=== PATIENT | male | born 1990 | race Caucasian/White ===

== ENCOUNTER 2016-05-13 19:33 | Emergency (ER) | payer OTHER ==
[~2016-05-13] VITALS: Ht 185.4 cm; Wt 110.0 kg
[~2016-05-13 19:33] MED LIST: DEXT10TA8 PO; DIPH1TAB PO
[2016-05-13 19:47] VITALS: BP 146/79; PULSE 96; RESP 20
--- NOTE | 2016-05-13 21:21 | ED.REPORT ---
HPI-Back Pain Under 40 Date of Service May 13, 2016 ED Provider: Mark Rob MD A 25 year old male with a history of L4 L5 disc herniation and anabolic steroid use presents to the ED complaining of lower back pain. The pt was working out strenuously two days ago with a focus on his back. He experienced lower back pain the next day but thought little of it and continued to work out normally. While doing leg raises last night, be "heard and felt" a pop in his right gluteus deidre. This was followed by severe lower back pain and numbness in his lower right gluteus muscle, toes, right calf, and right testicle. The pt denies nausea. He took ibuprofen and Tylenol today, the last doses of which were 12:00 and 15:00 respectively. The pt suspects that his pain is due to a reherniation of L4 and L5. His last herniation was in 05/2013, and he had a microdiscectomy in 09/2013. The pt has an appointment scheduled on 05/22/2016 to address back pain that he was experiencing prior to this episode. Nursing Notes Stated Complaint: LOWER BACK PAIN AND NUMBNESS Chief Complaint: Back Pain or Injury Nursing Notes Reviewed: Yes Allergies: Coded Allergies: No Known Allergies (Verified Allergy, Unknown, 03/13/16) Scheduled Dextroamphetamine/Amphetamine (Adderall) 10 Mg Tablet 10 MG PO BID Prednisone (PredniSONE) 20 Mg Tablet 20 MG PO TID Scheduled PRN Diphenoxylate/Atropine 2.5-0.025 mg (Lomotil 2.5-0.025 mg) 1 Each Tablet 2 TABLET PO QID PRN PRN For Diarrhea or Loose Stool General Time Seen by MD: 21:19 Chief Complaint Other (Lower back pain) Hx Obtained From: Patient Arrived By: Walk-in Sudden in Onset?: Yes Onset Occurred: 1 day ago Symptom Duration: Since onset Recent Healthcare: No recent hospitalization, Recent doctor visit Similar Sx Previous: Yes Past Medical History Past Medical History Sciatica Herniated lumbar intervertebral disk 05/2016 ADD/ADHD Past Surgical History microdiscectomy 09/2013 Smoking History Never Smoker Social History anabolic steroid use Alcohol Use: Denies alcohol use Drug Use: Denies drug use Ambulatory Status Independent Review of Systems Constitutional: Denies: Chills, Fever Respiratory: Denies: Non-productive cough, Shortness of breath Cardiovascular: Denies: Chest pain GI: Denies: Abdominal pain, Nausea, Vomiting Musculoskeletal: Reports: Back pain, Denies: Neck pain Complete sys rev & neg: except as marked. Physical Exam Initial Vital Signs Vital Signs (First) Date Time Temp Pulse Resp B/P Pulse Ox O2 Delivery O2 Flow Rate FiO2 05/13/16 19:47 37.2 96 20 146/79 Room Air 05/13/16 23:42 96 Initial VS: Reviewed, Vital signs normal General/Constitutional: Awake, Alert Back: Atraumatic very tender in right sciatic notch Neurologic: Oriented X3, Speech NL, No motor deficits, No sensory deficits Neck: Atraumatic, Supple, Full range of motion Respiratory / Chest: Atraumatic, Breath sounds NL, Breath sounds = bilat, No respiratory distress Cardiovascular: Heart rate NL, Regular rhythm, Heart sounds NL Abdomen: Atraumatic, Soft, Non-tender 1+ patellar reflexes will not tolerate movement of right leg Head / Eyes: Atraumatic, Normocephalic, PERRL, EOMI ENT: Atraumatic, Airway patent, Mucous membranes moist Upper Extremity / MS: Atraumatic, Full range of motion Skin: Atraumatic, Color NL, No rash, Warm, Dry Psychiatric: Affect NL, Mood NL Re-Eval/Medical Decision Med Decision/Clinical Course 25-year-old male with sudden onset of right sciatica, very similar to previous symptoms with an L5-S1 disc herniation. He has had some progressive neurologic deficit. He has no evidence of cauda equina syndrome and no indication for immediate imaging. He will be treated with pain medication and oral steroids. He will follow up as scheduled with his orthopedist for further evaluation and treatment. Source of Hx: Old records Re-Evaluation/Progress : Time of Eval: 23:19 Patient Status: Condition improved Re-Evaluation/Progress Note: Pt rechecked, whose pain has markedly improved. Diagnosis and the plan for discharge are discussed. The pt understands and agrees with the plan. All questions are addressed at this time. Counseled Regarding: Diagnosis, Need for follow-up, When/why to return to ED Discharge & Departure Impression: Primary Impression: Sciatica, right side Additional Impression: Herniated lumbar intervertebral disc Disposition: Home All VS Reviewed: Yes Patient Instructions: Sciatica (ED) Additional Instructions: Prednisone 20 mg by mouth 3 times a day for 5 days, #15 prescription written. Oxycodone/acetaminophen 5/325, one or 2 every 4-6 hours as needed for severe pain, #10 prepack dispensed. Avoid activity that hurts it. No work until it is markedly improved and you are not requiring pain medications. Talk to your regular doctor as planned about MRI and epidural steroid injection. Referrals: [facility] Scribe Attestation Portions of this note were transcribed by Zachariah Escoto. I, Dr. Rob personally performed the history, physical exam and medical decision-making; I reviewed and confirmed the accuracy of the information in the transcribed note. Signed by: Radha Nolan, 05/13/2016 and 23:40. copies to: [facility] Mark Rob MD May 13, 2016 21:21 ZACHARIAH ESCOTO May 13, 2016 22:08
[2016-05-13] MEDS ORDERED: predniSONE 20 mg Tablet PO ONE (21:30)
[2016-05-13] MEDS ORDERED: Ketorolac 30 mg/mL 2 mL Inj IM ONE (21:30)
[2016-05-13] MEDS ORDERED: HYDROmorphone 1 mg/mL Inj IM ONE (21:30)
[2016-05-13] MEDS ORDERED: _oxyCODONE/APAP 5-325 mg Tablet PO PRN (23:30)
[2016-05-13] MEDS ORDERED: PRE20 PO (23:33)
[2016-05-13 23:42] VITALS: PULSE 85; RESP 20; O2SAT 96
== END 2016-05-13 23:47 | disposition home or self-care (01) ==
LOC: SED 19:33
DX: M54.31 Sciatica, right side (principal); M51.26 Other intervertebral disc displacement, lumbar region; X50.3XXA Overexertion from repetitive movements, initial encounter; Y93.B9 Activity, other involving muscle strengthening exercises; Y92.9 Unspecified place or not applicable; Y99.8 Other external cause status
CPT/HCPCS: 96372; 99284; J1170; J1885

== ENCOUNTER 2016-05-18 18:52 | Emergency (ER) | payer OTHER ==
[~2016-05-18] VITALS: Ht 185.4 cm; Wt 111.4 kg
[~2016-05-18 18:52] MED LIST changes: +PRE20 PO
[2016-05-18 18:59] VITALS: BP 130/77; PULSE 105; RESP 16; O2SAT 96
== END 2016-05-18 19:25 | disposition left against medical advice (07) ==
LOC: SED 18:52
DX: R20.0 Anesthesia of skin (principal); Z53.21 Procedure and treatment not carried out due to patient leaving prior to being seen by health care provider